=== PATIENT | male | born 1980 | race Caucasian/White ===

== ENCOUNTER → 2023-11-12 13:36 | Outpatient (REF) | payer BC, SELFPAY | LOC: RAD 13:36 | PROVIDERS: ATTENDING PHYSICIAN Family Medicine | DX: I82.4Z2 Acute embolism and thrombosis of unspecified deep veins of left distal lower extremity (principal) | CPT/HCPCS: 93971 ==

== ENCOUNTER → 2024-05-24 06:22 | Outpatient (REF) | payer BC, SELFPAY ==
[2024-05-24 08:08] LABS: % Basophils 0.9 % (0-2); % Eosinophils 5.9 % (0-6); % Immature Granulocytes 0.2 % (0-0.5); % Lymphocytes 28.8 % (20.5-51.1); % Monocytes 8.1 % (1.7-9.3); % Neutrophils 56.1 % (42.2-75.2); Absolute Basophils 0.1 10^3/uL (0-0.2); Absolute Eosinophils 0.3 10^3/uL (0-0.7); Absolute Lymphocytes 1.5 10^3/uL (1.2-3.4); Absolute Monocytes 0.4 10^3/uL (0.1-0.6); Hematocrit 41.7 % (39.0-52.0); Hemoglobin 14.5 g/dL (13.0-18.0); Mean Corp Hgb Conc. 34.8 g/dL (33.0-37.0); Mean Corpuscular Volume 86.2 fL (80.0-94.0); Mean Platelet Volume 10.4 fL (7.4-10.4); Nucleated Red Blood Cells % 0 % (-); Platelet Count 263 10^3/uL (130-400); Red Blood Cell Count 4.84 10^6/uL (4.70-6.10); Red Cell Dist. Width 12.8 % (11.5-14.5); White Blood Cell Count 5.3 10^3/uL (4.8-10.8)
[2024-05-24 08:19] LABS: ALT (SGPT) 23 U/L (0-50); AST (SGOT) 28 U/L (17-59); Albumin 4.3 g/dl (3.5-5.0); Alkaline Phosphatase 62 U/L (38-126); Blood Urea Nitrogen 20 mg/dl (9-20); Calcium 9.8 mg/dl (8.4-10.2); Carbon Dioxide 31 mmol/L (22-30); Chloride 104 mmol/L (98-107); Glucose 80 mg/dl (70-99); HDL Cholesterol 45 mg/dl; LDL Cholesterol, Calculated 100 mg/dl; Potassium 4.5 mmol/L (3.5-5.1); Sodium 140 mmol/L (135-145); Total Bilirubin 0.8 mg/dl (0.2-1.3); Total Cholesterol 156 mg/dl (50-199); Total Protein 6.7 g/dl (6.3-8.2); Triglyceride 59 mg/dl (10-149); Very Low Density Lipoprotein 11 mg/dl (0-30); eGFR > 60.00
[2024-05-24 08:40] LABS: TSH 1.09 uIU/ml (0.47-4.68)
== END ==
LOC: REG 06:22
PROVIDERS: ATTENDING PHYSICIAN Family Medicine
DX: I10 Essential (primary) hypertension (principal); E78.5 Hyperlipidemia, unspecified; R53.83 Other fatigue; E03.9 Hypothyroidism, unspecified
CPT/HCPCS: 36415; 80053; 80061; 84443; 85025

== ENCOUNTER → 2025-07-26 06:30 | Outpatient (REF) | payer BC, SELFPAY ==
[2025-07-26 07:22] LABS: Hematocrit 42.1 % (39.0-52.0); Hemoglobin 14.1 g/dL (13.0-18.0); Mean Corp Hgb Conc. 33.5 g/dL (33.0-37.0); Mean Corpuscular Volume 88.3 fL (80.0-94.0); Nucleated Red Blood Cells % 0 % (-); Platelet Count 221 10^3/uL (130-400); Red Cell Dist. Width 12.5 % (11.5-14.5)
[2025-07-26 07:43] LABS: ALT (SGPT) 31 U/L (0-50); AST (SGOT) 25 U/L (17-59); Albumin 4.4 g/dl (3.5-5.0); Alkaline Phosphatase 55 U/L (38-126); Blood Urea Nitrogen 14 mg/dl (9-20); Calcium 9.6 mg/dl (8.4-10.2); Carbon Dioxide 33 mmol/L (22-30); Chloride 105 mmol/L (98-107); Glucose 89 mg/dl (70-99); HDL Cholesterol 46 mg/dl; LDL Cholesterol, Calculated 113 mg/dl; Potassium 4.4 mmol/L (3.5-5.1); Sodium 141 mmol/L (135-145); Total Protein 7.3 g/dl (6.3-8.2); Very Low Density Lipoprotein 12 mg/dl (0-30); eGFR > 60.00
[2025-07-26 08:08] LABS: PSA, Total - Screen 0.37 ng/ml (0.0-4.0); TSH 1.62 uIU/ml (0.47-4.68)
== END ==
LOC: REG 06:30
PROVIDERS: ATTENDING PHYSICIAN Family Medicine
DX: R35.0 Frequency of micturition (principal); I10 Essential (primary) hypertension; E78.5 Hyperlipidemia, unspecified; R53.83 Other fatigue; E03.9 Hypothyroidism, unspecified
CPT/HCPCS: 36415; 80053; 80061; 84443; 85025; G0103

== ENCOUNTER 2025-08-14 15:46 | Emergency (ER) | payer BC, SELFPAY ==
[2025-08-14 15:52] VITALS: BP 169/91
[2025-08-14 16:11] LABS: Hematocrit 44.5 % (39.0-52.0); Hemoglobin 15.2 g/dL (13.0-18.0); Mean Corp Hgb Conc. 34.2 g/dL (33.0-37.0); Mean Corpuscular Volume 87.8 fL (80.0-94.0); Nucleated Red Blood Cells % 0 % (-); Platelet Count 265 10^3/uL (130-400); Red Cell Dist. Width 12.5 % (11.5-14.5)
[2025-08-14 16:24] LABS: ALT (SGPT) 32 U/L (0-50); AST (SGOT) 32 U/L (17-59); Albumin 5.0 g/dl (3.5-5.0); Alkaline Phosphatase 75 U/L (38-126); Blood Urea Nitrogen 18 mg/dl (9-20); Calcium 9.9 mg/dl (8.4-10.2); Carbon Dioxide 32 mmol/L (22-30); Chloride 98 mmol/L (98-107); Glucose 111 mg/dl (70-99); Potassium 4.7 mmol/L (3.5-5.1); Sodium 135 mmol/L (135-145); Total Protein 8.3 g/dl (6.3-8.2); eGFR > 60.00
[2025-08-14 16:35] LABS: Troponin I < 0.012 ng/ml
--- NOTE | 2025-08-14 18:41 | ED.GENMED ---
History of Present Illness
General
Chief Complaint: Cardiac Symptoms
Time Seen by Provider: 08/14/25 18:41
History of Present Illness
History of Present Illness:
FOCUSED PAST MEDICAL HISTORY
- Has had kidney stones
REVIEW OF OLD RECORDS
- I reviewed the EKG from earlier today x 2 that showed atrial fibrillation which was rate controlled
Note:
CHIEF COMPLAINT(S)
Routine physical examination revealing irregular heartbeat suggesting atrial fibrillation (AFib).
HISTORY OF PRESENT ILLNESS
The patient is a 45-year-old male who presented today for a routine physical examination. During a recent check-up, an electrocardiogram (EKG) was performed which indicated potential atrial fibrillation due to the irregular heartbeat observed. The
patient stated, �Everything was good, like my heart.� However, upon reviewing the EKG, there were irregular rhythms that suggested possible atrial fibrillation, despite normal findings in lung and other systemic evaluations. The EKG done at this
facility did not confirm atrial fibrillation, showing a normal rhythm instead. The patient denies any significant symptoms such as heart palpitations. No history of valvular disease, diabetes, or heart failure was reported. The patient mentioned
prior hypertension for which medication was taken two years ago, though they are not on any current antihypertensive treatment. The patients blood pressure has been stable. The CHADS-VASc score for stroke risk was calculated as zero, indicating a
very low probability. The patient has not been seen by a geotechnical engineering technician in the past.
PAST MEDICAL AND SURIGICAL HISTORY
Previous history of hypertension, previously managed with medication.
SOCIAL DETERMINANTS AFFECTING HEALTH
The patient expressed an awareness of atrial fibrillation typically affecting older individuals, referencing commercial advertisements.
REVIEW OF SYSTEMS
- Cardiovascular: Irregular heartbeat noted in recent evaluations, but no associated symptoms such as palpations reported by the patient.
PHYSICAL EXAM
General: Alert, no acute distress.
Skin: Warm, dry.
Head: Normocephalic, atraumatic.
Neck: Supple, trachea midline.
Eye Ears, nose, mouth and throat: Oral mucosa moist.
Cardiovascular: Abnormal rhythm noted, normal peripheral perfusion, No edema. Regular rhythm.
Respiratory: Respirations are non-labored.
Gastrointestinal : Abdomen nondistended
Back: Normal range of motion, Normal alignment.
Musculoskeletal: Normal ROM, normal strength.
Neurological: Alert and oriented to person, place, time, and situation, No focal neurological deficit observed.
Psychiatric: Cooperative, appropriate mood & affect.
PROBLEM LIST
Acute: Irregular heartbeat suggesting atrial fibrillation.
PLAN
- Referral to a geotechnical engineering technician for further evaluation of atrial fibrillation.
- Given the low CHADS-VASc score, currently, no recommendation for anticoagulation therapy.
DIFFERENTIAL DIAGNOSIS
The Differential Diagnosis includes, in no particular order and is not limited to:
- Atrial Fibrillation
- Premature atrial contractions
- Atrial flutter
- Paroxysmal supraventricular tachycardia
- Multifocal atrial tachycardia
- Hypertensive heart disease
- Valvular heart disease
- Cardiomyopathy
- Congestive heart failure
- Myocardial ischemia
Disposition:
SUMMARY OF ENCOUNTER
The patient was seen in the emergency department for an irregular heartbeat suggesting atrial fibrillation (AFib) identified during a recent routine physical examination. Initial assessments in the emergency department showed the patient currently
in sinus rhythm with no present symptoms such as palpitations, dizziness, or shortness of breath. An EKG performed confirmed an irregular heartbeat, aligned with previous findings of possible AFib. The patient has a history of hypertension but
reports it is well controlled and is not currently on antihypertensive medication. The low CHADS-VASc score indicates a low risk of stroke, thus not necessitating anticoagulation at this point. The geotechnical engineering technician, Dr. Choi, has been notified, and
imaging was sent for further evaluation. The patient was informed of the potential use of monitoring devices such as an Apple Watch or a cardio device for intermittent assessments at home.
DISPOSITION
Discharge.
PLAN
Arrange a follow-up appointment with Dr. Choi, a geotechnical engineering technician, for a comprehensive evaluation of the irregular heartbeat and potential atrial fibrillation. Educate the patient about monitoring heart rhythms with personal health devices like an
Apple Watch and advise seeking medical help if symptoms such as rapid heartbeat, dizziness, or shortness of breath occur.
PATIENT EDUCATION AND COUNSELING
The patient was counseled on the significance of monitoring AFib due to its association with stroke risk, although risk is currently low due to the patients age and absence of additional risk factors. Discussed the occasional need for blood thinners
if future episodes of AFib increase in frequency or symptoms develop. Emphasized the importance of follow-up with cardiology and considering personal heart monitoring devices for regular rhythm checks.
FOLLOW-UP INSTRUCTIONS
The patient is to follow up with Dr. Choi, the geotechnical engineering technician, as soon as possible for further evaluation of the atrial fibrillation. The patient is advised to monitor for any symptoms such as heart palpitations or dizziness that might suggest AFib
and to return to the emergency department if they experience concerning symptoms.
MEDICAL DECISION MAKING
1. Number and Complexity of Problems Addressed: Chronic conditions affecting care include a history of hypertension.
- Data:
- Category 1: Reviewed recent EKG indicating atrial fibrillation and consulted with Dr. Choi for cardiology input.
- Category 2: My independent interpretation of the current EKG shows sinus rhythm consistent with prior observations from the routine check-up suggesting AFib.
- Category 3: Discussion of management with Dr. Choi, the geotechnical engineering technician, indicated agreement with AFib interpretation and discharge with close follow-up instructions.
- Risk: The discussion involves monitoring potential AFib episodes and considering blood thinner usage in cases of recurrent symptoms, but no prescription at this time due to low risk.
DIAGNOSIS
1. Atrial Fibrillation (ICD-10: I48.91)
2. History of Hypertension but not currently felt to have hypertension and no longer takes antihypertensives
EKG
- Sinus 86, normal axis,
LABS
- CBC and chemistries unremarkable, troponin less than 0.012
Past History
Past History
ED Past Medical History: HTN and Other (Right scrotal hydrocele, kidney stones, migraines)
ED Past Surgical History: Orthopedic and Urological (Vasectomy)
Social History
Tobacco: Non-smoker
Alcohol: None
Personal:
Living: with family
Employment: Employed
Family History
Family History: Other (Noncontributory)
Phy Exam
Physical Exam
Physical Exam:
See HPI
Course
Orders/Labs/Results
Orders:
Orders
08/14/25 15:47
Electrocardiogram (*1) Urgent
Reason for Study: Atrial Fibrillation
EKG- Treatment ONCE
08/14/25 16:03
Complete Blood Count/With Diff Urgent
Comprehensive Metabolic Panel Urgent
Troponin I Urgent
Abnormal Lab Results
08/14/25
16:03
Carbon Dioxide 32 H mmol/L
(22-30)
Glucose 111 H mg/dl
(70-99)
Total Protein 8.3 H g/dl
(6.3-8.2)
08/14/25 16:03
08/14/25 16:03
Vital Signs
Initial and Last Documented VS:
Initial Vital Signs
Temp Pulse Resp BP Pulse Ox
36.8 C 89 18 169/91 95
08/14/25 15:52 08/14/25 15:52 08/14/25 15:52 08/14/25 15:52 08/14/25 15:52
Last Documented Vital Signs
Temp Pulse Resp BP Pulse Ox
36.8 C 76 24 134/74 95
08/14/25 15:52 08/14/25 19:15 08/14/25 19:15 08/14/25 19:03 08/14/25 18:42
*Pulse Oximetry
SaO2: 95
Oxygen Mode of Delivery: Room air
Patient hypoxic: no
*Critical Care Note
Total Time (30-74mins, 75-104mins- exclusive of procedures): Not Applicable
ED Attending Note
-
Portions of this chart may have been created with voice recognition software.� Occasional wrong word or��sound alike� substitutions may have occurred due to the inherent limitations of voice recognition software.
Discharge Plan
Departure
Patient Disposition: Home (Routine Discharge)
Date of Disposition: 08/14/25
Time of Disposition: 20:34
Patient with high blood pressure during this ER visit?: Yes
Discharge Problem:
Paroxysmal atrial fibrillation
Instructions: Atrial fibrillation (DC), BLOOD PRESSURE
Prescriptions:
No Action
diltiazem HCl [Cardizem] 120 MG tablet
120 mg PO DAILY
multivitamin with folic acid [Tab-A-Leana] 1 TABLET tablet
1 tab PO DAILY
Referrals:
UNKNOWN - PT DOES,NOT KNOW [Family Provider]
Helio Mooney, DO [Active, Cardiology]
Activity Restrictions/Additional Instructions:
Your EKG shows sinus rhythm here but I do believe that you are in atrial fibrillation while you are at the doctor's office. Take those EKGs with you and share with Dr. Mooney. I spoke to Dr. Mooney and showed him the EKGs tonight. Follow-up with
his office. Return if worse or other concerns. Basic blood work is unremarkable.
Interventions
Interventions:
*Risk Screen - Suicide Last Done: 08/14/25 15:55
*General Assessment Last Done: 08/14/25 15:55
*Neglect/Abuse Screening Last Done: 08/14/25 15:55
*ED- Fall Risk Assessment Last Done: 08/14/25 19:14
*ED COVID-19 Vaccine History Last Done: 08/14/25 15:55
*ED Influenza Vaccine History Last Done: 08/14/25 15:55
ED- Pulmonary Assessment Last Done: 08/14/25 19:14
ED- Cardiac Assessment Last Done: 08/14/25 19:14
Discharge Date and Time
Print Language: SPANISH
[2025-08-14 19:03] VITALS: BP 134/74
[2025-08-14 19:13] VITALS: BMI 32.8
[2025-08-14 20:00] VITALS: BP 126/80
[2025-08-14 20:45] VITALS: BP 127/79
== END 2025-08-14 20:56 | disposition home or self-care (01) ==
LOC: EMR 15:46
PROVIDERS: Emergency Medicine; EMERGENCY PHYSICIAN Emergency Medicine
DX: I48.0 Paroxysmal atrial fibrillation (principal); I10 Essential (primary) hypertension
CPT/HCPCS: 99284; 80053; 84484; 85025; 93005

== ENCOUNTER → 2025-09-10 15:51 | Outpatient (REF) | payer BC, SELFPAY ==
[2025-09-10 17:29] LABS: Hematocrit 43.4 % (39.0-52.0); Hemoglobin 14.5 g/dL (13.0-18.0); Mean Corp Hgb Conc. 33.4 g/dL (33.0-37.0); Mean Corpuscular Volume 90.6 fL (80.0-94.0); Nucleated Red Blood Cells % 0 % (-); Platelet Count 255 10^3/uL (130-400); Red Cell Dist. Width 12.7 % (11.5-14.5)
[2025-09-10 17:56] LABS: Blood Urea Nitrogen 20 mg/dl (9-20); Calcium 9.7 mg/dl (8.4-10.2); Chloride 99 mmol/L (98-107); Glucose 90 mg/dl (70-99); Potassium 4.4 mmol/L (3.5-5.1); Sodium 137 mmol/L (135-145); eGFR > 60.00
[2025-09-10 18:04] LABS: Carbon Dioxide 33 mmol/L (22-30)
== END ==
LOC: RCS 15:51
PROVIDERS: ATTENDING PHYSICIAN Internal Medicine Cardiovascular Disease; FAMILY PHYSICIAN Family Medicine
DX: I48.91 Unspecified atrial fibrillation (principal); I10 Essential (primary) hypertension
CPT/HCPCS: 36415; 80048; 85025; 93306